=== PATIENT | male | born 1955 | race Native Hawaiian/Other Pacific Islander ===

== ENCOUNTER 2019-07-05 07:49 | Day surgery (SDC) | payer OTHER ==
[~2019-07-05] VITALS: Ht 30.5 cm; Wt 0.5 kg
== END 2019-07-05 10:05 | disposition home or self-care (01) ==
LOC: OR 07:49
PROC: 3E0R33Z Introduction of Anti-inflammatory into Spinal Canal, Percutaneous Approach (ICD-10-PCS; principal; 2019-07-05)
PROC: B01BYZZ Fluoroscopy of Spinal Cord using Other Contrast (ICD-10-PCS; 2019-07-05)
DX: M50.123 Cervical disc disorder at C6-C7 level with radiculopathy (principal)
CPT/HCPCS: J1020

== ENCOUNTER 2019-08-09 07:23 | Day surgery (SDC) | payer OTHER | END 2019-08-09 08:50 | disposition home or self-care (01) | LOC: OR 07:23 | PROC: 3E0R33Z Introduction of Anti-inflammatory into Spinal Canal, Percutaneous Approach (ICD-10-PCS; principal; 2019-08-09) | PROC: B01BYZZ Fluoroscopy of Spinal Cord using Other Contrast (ICD-10-PCS; 2019-08-09) | DX: M50.123 Cervical disc disorder at C6-C7 level with radiculopathy (principal) | CPT/HCPCS: J1020 ==